=== PATIENT | female | born 1985 | race Caucasian/White ===

== ENCOUNTER 2017-07-17 10:51 | Emergency (ER) | payer MEDICAID, OTHER ==
[~2017-07-17] VITALS: Ht 167.6 cm; Wt 64.0 kg
[~2017-07-17 10:51] MED LIST: LORA0.5T2 PO
[2017-07-17] MEDS ORDERED: ACETAMINOPHEN 325MG TABLET PO ONE (15:45)
[2017-07-17] MEDS ORDERED: ONDANSETRON 4MG ODT PO ONE (15:45)
[2017-07-17 22:45] VITALS: BP 99/54
== END 2017-07-17 22:45 | disposition home or self-care (01) ==
LOC: ER 12:16
DX: S09.8XXA Other specified injuries of head, initial encounter (principal); Y04.2XXA Assault by strike against or bumped into by another person, initial encounter; Y93.89 Activity, other specified; Y92.511 Restaurant or cafe as the place of occurrence of the external cause; I10 Essential (primary) hypertension
CPT/HCPCS: 70450; 99284; Q0162